=== PATIENT | male | born 2000 | race Two or more races ===

== ENCOUNTER 2020-01-28 19:03 | Emergency (ER) | payer MEDICAID, OTHER ==
--- NOTE | 2020-01-28 19:31 | EDM.PDOC ---
ED HPI GENERAL MEDICAL PROBLEM - General Chief Complaint: General Stated Complaint: COUGH, CHEST TIGHTNESS Time Seen by Provider: 01/28/20 19:25 Source of Information: Reports: Patient, Family (). Denies: Old Records ( No [facility] records available) History Limitations: Reports: No Limitations - History of Present Illness INITIAL COMMENTS - FREE TEXT/NARRATIVE: The patient was brought to the emergency room via private automobile by his for evaluation of a one-week history of progressive brownish productive cough associated with intermittent pleurisy. He also has problems with increasing sinus congestion with secondary headaches including migraine headaches. The patient has not taken any medications for his symptoms to this point. He denies any known exposure to infection or recent travel. The patient has not received his influenza booster yet this season or last year. His other immunizations are apparently up-to-date. The patient also denies any recent fever, wheezing, dyspnea, etc.. No recent history of abdominal pain, heartburn , nausea, diarrhea, melena, gross hematochezia, or any food intolerance, including fatty foods, etc.. The patient denies any other chest pain/pressure, heart flutter, dizziness, orthostasis, orthopnea, diaphoresis, paresthesias, recent decreased exercise tolerance, or any other anginal-type symptoms. Onset: Gradual Onset Date: 01/21/20 Duration: Day(s):, Getting Worse Location: Reports: Head (Frontal headache bilaterally), Chest (Pleurisy as above ). Denies: Face, Neck, Abdomen, Back, Upper Extremity, Left, Upper Extremity, Right, Radiates to Quality: Reports: Same as Previous Episode, Sharp Severity: Moderate Improves with: Reports: Rest Worsens with: Reports: Breathing Context: Reports: Other (As above). Denies: Sick Contact, Trauma Associated Symptoms: Reports: Chest Pain (Pleurisy), Cough, cough w sputum, Headaches. Denies: Confusion, Diaphoresis, Fever/Chills, Loss of Appetite, Malaise, Nausea/Vomiting, Rash, Shortness of Breath, Syncope, Weakness Treatments [employer]: Reports: Other (see below) (None) Headache Pain Score (Numeric/FACES): 6 (And occasional pleurisy) - Related Data Allergies Allergy/AdvReac Type Severity Reaction Status Date / Time acetaminophen Allergy Bleeding Verified 01/28/20 19:13 Home Meds: Home Meds . [No Known Home Meds] 01/28/20 [History] Past Medical History HEENT History: Reports: None. Denies: Impaired Vision Cardiovascular History: Reports: None. Denies: Arrhythmia, Heart Murmur, Hypertension Respiratory History: Reports: Asthma, Bronchitis, Recurrent, Other (See Below) Other Respiratory History: Childhood asthma. Gastrointestinal History: Reports: None Neurological History: Reports: Headaches, Chronic, Migraines - Past Surgical History HEENT Surgical History: Reports: Oral Surgery, Other (See Below). Denies: Adenoidectomy, Myringotomy w Tube(s), Tonsillectomy Other HEENT Surgeries/Procedures: [place] teeth extraction 4 at 16 years of age GI Surgical History: Reports: None. Denies: Hernia, Abdominal, Hernia, Inguinal , Hernia Repair/Other Male Surgical History: Reports: None. Denies: Circumcision, Vasectomy Social & Family History - Tobacco Use Smoking Status *Q: Current Every Day Smoker Tobacco Use Within Last Twelve Months: Cigarettes Years of Tobacco use: 10 Packs/Tins Daily: 0.2 Packs/Tins Daily Comment: Started smoking at age 9. Used Tobacco, but Quit: No Smoking Cessation Information Provided To Patient: Yes Second Hand Smoke Exposure: No Second Hand Smoke Education Provided: No - Living Situation & Occupation Living situation: Reports: (2019, 1 child) Occupation: Employed (About to be employed by [employer]) ED ROS GENERAL - Review of Systems Review Of Systems: Comprehensive ROS is negative, except as noted in HPI. 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 No: Normal Oropharynx (Trace erythema in the posterior pharynx with no pinpoint white exudates or peritonsillar abscess), Dysphagia, Perioral Cyanosis Head: Atraumatic. No: Facial Swelling, Facial Tenderness, Sinus Tenderness Neck: Normal Inspection, Supple, Non-Tender, Full Range of Motion. No: Lymphadenopathy (L), Lymphadenopathy (R), Thyromegaly Respiratory/Chest: No Respiratory Distress, Lungs Clear, Normal Breath Sounds, No Accessory Muscle Use, Chest Non-Tender. No: Pleural Rub, Retractions Cardiovascular: Normal Peripheral Pulses, Regular Rate, Rhythm, No Edema, No Gallop, No JVD, No Murmur, No Rub. No: Gallop/S3, Gallop/S4 Peripheral Pulses: 2+: Radial (L), Radial (R), Dorsalis Pedis (L), Dorsalis Pedis (R) GI/Abdominal: Normal Bowel Sounds, Soft, Non-Tender, No Organomegaly, No Distention, No Abnormal Bruit, No Mass. No: Guarding (Male) Exam: Deferred Rectal (Males) Exam: Deferred Back Exam: Normal Inspection, Full Range of Motion. No: CVA Tenderness (L), CVA Tenderness (R), Muscle Spasm Extremities: Normal Inspection, Normal Range of Motion, Non-Tender, Normal Capillary Refill, No Pedal Edema Neurological: Alert, Oriented, CN II-XII Intact, Normal Cognition, Normal Gait, No Motor/Sensory Deficits Psychiatric: Normal Affect, Normal Mood Skin Exam: Warm, Dry, Intact, Normal Color, No Rash Lymphatic: No Adenopathy Course - Vital Signs Last Recorded V/S: Last Vital Signs Temp 37.1 C 01/28/20 19:04 Pulse 79 01/28/20 19:04 Resp 16 01/28/20 19:04 BP 131/81 01/28/20 19:04 Pulse Ox 96 01/28/20 19:04 Vital Signs - 24 hr 01/28/20 19:04 Temperature [ 37.1 C Temporal] Pulse, 79 Peripheral [ Pulse Oximetry] Respiratory 16 Rate Blood Pressure 131/81 [Upper Arm] O2 Sat by Pulse 96 Oximetry - Orders/Labs/Meds Orders: Active Orders 24 hr Category Date Time Status Influenza Vaccine Charge [RC] .DISCHARGE Care 01/28/20 20:08 Active Chest 2V [CR] Urgent Exams 01/28/20 19:33 Taken CULTURE STREP A CONFIRMATION [] Stat Lab 01/28/20 17:30 Results STREP SCRN A RAPID W CULT CONF [RM] Stat Lab 01/28/20 17:30 Results Isolation [COMM] Routine Oth 01/28/20 19:32 Active Obtain Past Medical Record [OM.PC] Routine Oth 01/28/20 19:32 Active Labs: Microbiology 01/28/20 15:30 Influenza Type A Antigen Screen - Final Nasal, Left NEGATIVE INFLUENZA A VIRUS AG REFERENCE RANGE: NEGATIVE Influenza Type B Antigen Screen - Final NEGATIVE INFLUENZA B VIRUS AG REFERENCE RANGE: NEGATIVE 01/28/20 17:30 Group A Streptococcus Rapid Screen - Final Throat NEGATIVE STREP A SCREEN REFERENCE RANGE: NEGATIVE Meds: Medications Discontinued Medications Generic Name Dose Route Start Last Admin Trade Name Freq PRN Reason Stop Dose Admin Influenza Virus Vaccine 60 mcg 01/28/20 20:30 01/28/20 20:23 Fluzone Quad Syringe IM 01/28/20 20:31 60 mcg .ONCE ONE Administration - Radiology Interpretation Free Text/Narrative:: Chest x-ray, PA and lateral, shows mild pulmonary obstructive disease with no pulmonary infiltrates, cardiomegaly, CHF, pneumothorax, etc. Departure - Departure Time of Disposition: 20:37 Disposition: Home, Self-Care 01 Condition: Good Clinical Impression: Bronchitis, Pleurisy, Frequent headaches, Tobacco abuse counseling, Asthma - Discharge Information *PRESCRIPTION DRUG MONITORING PROGRAM REVIEWED*: Not Applicable *COPY OF PRESCRIPTION DRUG MONITORING REPORT IN PATIENT ALEX: Not Applicable Instructions: Steps to Quit Smoking, [id number], Health Risks of Smoking, Pleurisy, [id number] Referrals: PCP,Unknown [Ordering Only Provider] - Forms: ED Department Discharge Additional Instructions: 1. Follow up with your regular provider in 10-14 days as needed, if symptoms persist. Bring these discharge instructions with you to that visit.. 2. OTC ibuprofen 2-3 tabs by mouth every 6 hours with food as directed./ needed. 3. Stop all tobacco use EMMANUEL as directed/per provided information and consider contacting Quit LIne, etc.. 4. Immediately after this visit verify that your cellular telephone's voicemail has been activated and is empty. Also verify that your home telephone 's answering machine is operating properly and has space to receive messages. Note that it is sometimes necessary for us to be able to contact you at a later date to discuss your medical care. 5. Please remember that we are ALWAYS here for you and want to answer any questions you may have. Feel free to call the hospital any time and we call you back EMMANUEL. 6. Listerine gargles four times per day, after meals and at bedtime, with additional Chloroseptic lozenges or spray as needed for 10 days and/or until symptoms resolve. Sepsis Event Note - Evaluation Sepsis Screening Result: No Definite Risk - Focused Exam Vital Signs: Vital Signs Temp Pulse Resp BP Pulse Ox 01/28/20 19:04 37.1 C 79 16 131/81 96 Date Exam was Performed: 01/28/20 Time Exam was Performed: 20:49 - Problem List & Annotations (1) Bronchitis SNOMED Code(s): 46242905 Code(s): J40 - BRONCHITIS, NOT SPECIFIED ACUTE OR CHRONIC Status: Acute Priority: High Current Visit: No Onset Date: 01/21/20 Annotation/ Comment:: Likely viral bronchitis with secondary pleurisy and additional mild viral pharyngitis with symptomatic relief as per discharge instructions. Influenza booster given during today's visit. No indication for antibiotic therapy at this time. (2) Frequent headaches SNOMED Code(s): 171233113 Code(s): R51 - HEADACHE Status: Chronic Priority: Medium Current Visit : No Annotation/Comment:: Frequent mixed migraine and tension headaches with mostly tension component at this time. Note of URI symptoms with possible beginning viral sinus infection. Observe for now. (3) Pleurisy SNOMED Code(s): 099323755 Code(s): R09.1 - PLEURISY Status: Acute Priority: High Current Visit: No Onset Date: 01/21/20 Annotation/Comment:: As above. No pleuritic pain at time of ER evaluation. (4) Tobacco abuse counseling SNOMED Code(s): 871939102, 497864482, 376013965 Code(s): Z71.6 - TOBACCO ABUSE COUNSELING Status: Chronic Priority: Medium Current Visit: No Annotation/Comment:: Tobacco cessation strongly encouraged with information provided at time of discharge. - Problem List Review Problem List Initiated/Reviewed/Updated: Yes - My Orders Last 24 Hours: My Active Orders 01/28/20 17:30 CULTURE STREP A CONFIRMATION [RM] Stat STREP SCRN A RAPID W CULT CONF [RM] Stat 01/28/20 19:32 Isolation [COMM] Routine Obtain Past Medical Record [OM.PC] Routine 01/28/20 19:33 Chest 2V [CR] Urgent 01/28/20 20:08 Influenza Vaccine Charge [RC] .DISCHARGE - Assessment/Plan Last 24 Hours: My Active Orders 01/28/20 17:30 CULTURE STREP A CONFIRMATION [RM] Stat STREP SCRN A RAPID W CULT CONF [RM] Stat 01/28/20 19:32 Isolation [COMM] Routine Obtain Past Medical Record [OM.PC] Routine 01/28/20 19:33 Chest 2V [CR] Urgent 01/28/20 20:08 Influenza Vaccine Charge [RC] .DISCHARGE Assessment:: As above Plan: As above. Extensive precautions were given to the patient and his , who are in agreement with the treatment plan. See Patient Instructions for further treatment and plan.
[2020-01-28] MEDS ORDERED: FLU Vacc QS2019-20(6MOS+)/PF 60 MCG/0.5 ML SYRINGE IM ONE (20:30)
== END 2020-01-28 20:37 | disposition home or self-care (01) ==
LOC: LL.ED 19:03
DX: J45.909 Unspecified asthma, uncomplicated (principal); R09.1 Pleurisy; F17.210 Nicotine dependence, cigarettes, uncomplicated; Z23 Encounter for immunization; Z71.6 Tobacco abuse counseling; Z88.8 Allergy status to other drugs, medicaments and biological substances
CPT/HCPCS: 71046; 87081; 87430; 87804; 90686; 99283-25; G0008

== ENCOUNTER 2020-05-14 17:07 | Emergency (ER) | payer MEDICAID ==
[2020-05-14 17:22] VITALS: BP 108/62; PULSE 60
[2020-05-14 17:47] LABS: CHLORIDE,CL 104 mmol/L (98-107); SODIUM,NA 141 mmol/L (136-145)
--- NOTE | 2020-05-14 17:56 | EDM.PDOC ---
ED HPI GENERAL MEDICAL PROBLEM - General Chief Complaint: General Stated Complaint: fevers, muscle aches, JACKMAN, vomiting Time Seen by Provider: 05/14/20 17:40 Source of Information: Reports: Patient History Limitations: Reports: No Limitations - History of Present Illness INITIAL COMMENTS - FREE TEXT/NARRATIVE: Patient sent here from [facility] due to not feeling well for last 24 hours. Over that time he has developed mild cough, stuffy nose, mild body aches, nausea and emesis. Eating and drinking well. No bowel changes. No measured fevers but felt warm. Has headache. Sent home from work last night. Now they wish to have him checked out given Covid 19 threat. No other complaints. Bilateral Temporal Pain Score (Numeric/FACES): 8 - Related Data Allergies Allergy/AdvReac Type Severity Reaction Status Date / Time acetaminophen Allergy Bleeding Verified 05/14/20 17:08 Home Meds: Home Meds . [No Known Home Meds] 01/28/20 [History] Past Medical History HEENT History: Reports: None Cardiovascular History: Reports: None Respiratory History: Reports: Asthma, Bronchitis, Recurrent, Other (See Below) Other Respiratory History: Childhood asthma. Gastrointestinal History: Reports: None Neurological History: Reports: Headaches, Chronic, Migraines - Past Surgical History HEENT Surgical History: Reports: Oral Surgery, Other (See Below) Other HEENT Surgeries/Procedures: [place] teeth extraction 4 at 16 years of age GI Surgical History: Reports: None Male Surgical History: Reports: None Social & Family History - Tobacco Use Smoking Status *Q: Current Every Day Smoker Years of Tobacco use: 8 Packs/Tins Daily: 0.5 - Caffeine Use Caffeine Use: Reports: None - Recreational Drug Use Recreational Drug Use: No - Living Situation & Occupation Living situation: Reports: (2019, 1 child) Occupation: Employed (About to be employed by [employer]) ED ROS GENERAL - Review of Systems Review Of Systems: See Below Constitutional: Reports: Fever, Malaise. Denies: Night Sweats, Diaphoresis HEENT: Reports: Other (stuffy nose) Respiratory: Reports: Cough (mild). Denies: Shortness of Breath, Wheezing, Pleuritic Chest Pain, Sputum, Hemoptysis Cardiovascular: Reports: No Symptoms. Denies: Chest Pain, Palpitations, Syncope GI/Abdominal: Reports: Nausea, Vomiting. Denies: Abdominal Pain, Constipation, Diarrhea, Hematemesis, Hematochezia : Reports: No Symptoms Musculoskeletal: Reports: Muscle Pain Skin: Reports: No Symptoms Neurological: Reports: Headache. Denies: Dizziness, Syncope Psychiatric: Reports: No Symptoms Hematologic/Lymphatic: Reports: No Symptoms ED EXAM, GENERAL - Physical Exam Exam: See Below Exam Limited By: Intoxication General Appearance: Alert, WD/WN, No Apparent Distress, Other (busy messaging on his phone) Eye Exam: Bilateral Eye: EOMI, PERRL Ears: Normal External Exam, Hearing Grossly Normal Nose: Normal Inspection Throat/Mouth: Normal Inspection, Normal Lips, Normal Voice, No Airway Compromise Head: Atraumatic, Normocephalic Neck: Normal Inspection, Supple, Non-Tender, Full Range of Motion. No: Lymphadenopathy (L), Lymphadenopathy (R) Respiratory/Chest: No Respiratory Distress, Lungs Clear, Normal Breath Sounds, No Accessory Muscle Use, Chest Non-Tender Cardiovascular: Normal Peripheral Pulses, Regular Rate, Rhythm, No Edema, No Murmur GI/Abdominal: Soft, Non-Tender, No Distention Back Exam: No: CVA Tenderness (L), CVA Tenderness (R), Muscle Spasm Extremities: Normal Inspection, Normal Capillary Refill Neurological: Alert, Oriented, CN II-XII Intact, Normal Cognition, Normal Gait, No Motor/Sensory Deficits Psychiatric: Normal Affect, Normal Mood Skin Exam: Warm, Dry, Intact, Normal Color Course - Vital Signs Last Recorded V/S: Last Vital Signs Temp 36.6 C 05/14/20 17:15 Pulse 60 05/14/20 17:15 Resp 15 05/14/20 17:15 BP 108/62 05/14/20 17:15 Pulse Ox 98 05/14/20 17:15 - Orders/Labs/Meds Orders: Active Orders 24 hr Category Date Time Status CORONAVIRUS COVID-19 PCR PHL Routine Lab 05/14/20 17:30 Received UA W/MICROSCOPIC [URIN] Stat Lab 05/14/20 17:18 Ordered Labs: Laboratory Tests 05/14/20 05/14/20 05/14/20 Range/Units 17:30 17:30 17:30 WBC 8.4 (4.0-10.2) K/uL RBC 4.70 (4.33-5.41) M/uL Hgb 14.8 (13.1-16.8) g/dL Hct 42.7 (39.0-49.0) % MCV 90.9 (84.0-98.0) fL MCH 31.5 (28.2-33.3) pg MCHC 34.7 (31.7-36.0) g/dL RDW 12.1 (11.2-14.1) % Plt Count 324 (150-350) K/uL Neut % (Auto) 46.9 (45.0-80.0) % Lymph % (Auto) 38.9 (10.0-50.0) % [place] % (Auto) 10.9 (2.0-14.0) % Eos % (Auto) 3.1 (0.0-5.0) % Baso % (Auto) 0.2 (0.0-2.0) % Neut # (Auto) 3.92 (1.40-7.00) K/uL Lymph # (Auto) 3.25 (0.50-3.50) K/uL [place] # (Auto) 0.91 (0.00-1.00) K/uL Eos # (Auto) 0.26 (0.00-0.50) K/uL Baso # (Auto) 0.02 (0.00-0.20) K/uL Sodium 141 (136-145) mmol/L Potassium 3.9 (3.5-5.1) mmol/L Chloride 104 (98-107) mmol/L Carbon Dioxide 29.4 (21.0-32.0) mmol/L BUN 13 (7-18) mg/dL Creatinine 0.83 (0.51-1.17) mg/dL Est Cr Clr Drug Dosing 135.49 mL/min Estimated GFR (MDRD) > 60 mL/min Glucose 91 (74-106) mg/dL Lactic Acid 0.9 (0.4-2.0) mmol/L Calcium 9.1 (8.5-10.1) mg/dL Total Bilirubin 1.5 H (0.2-1.0) mg/dL AST 17 (15-37) U/L ALT 23 (12-78) U/L Alkaline Phosphatase 76 (46-116) IU/L Total Protein 7.4 (6.4-8.2) g/dL Albumin 4.3 (3.4-5.0) g/dL - Re-Assessments/Exams Free Text/Narrative Re-Assessment/Exam: 05/14/20 17:57 Vital signs stable. Unremarkable exam. Well hydrated. Comfortable appearance. Baseline labs (CBC/Chem/lactic) overall unremarkable. 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 Covid 19 testing performed. Discharge home. No return to [facility] until Covid testing results are available. Follow up otherwise as needed. Precautions reviewed prior to discharge. Patient declined Toradol for pain/Zofran for nausea Departure - Departure Time of Disposition: 17:59 Disposition: Home, Self-Care 01 Condition: Good Clinical Impression: Viral illness - Discharge Information *PRESCRIPTION DRUG MONITORING PROGRAM REVIEWED*: Not Applicable *COPY OF PRESCRIPTION DRUG MONITORING REPORT IN PATIENT ALEX: Not Applicable Instructions: Viral Respiratory Infection, [id number] Forms: ED Department Discharge Additional Instructions: No work until your Covid 19 results become available. The test will be sent out tomorrow, and may take several days to complete. Further restrictions to be discussed if test is positive. For now rest/stay hydrated. Follow up as needed if you have problems/worsening. Sepsis Event Note (ED) - Evaluation Sepsis Screening Result: No Definite Risk - Focused Exam Vital Signs: Vital Signs Temp Pulse Resp BP Pulse Ox 05/14/20 17:15 36.6 C 60 15 108/62 98 - My Orders Last 24 Hours: My Active Orders 05/14/20 17:18 UA W/MICROSCOPIC [URIN] Stat 05/14/20 17:30 CORONAVIRUS COVID-19 PCR PHL Routine - Assessment/Plan Last 24 Hours: My Active Orders 05/14/20 17:18 UA W/MICROSCOPIC [URIN] Stat 05/14/20 17:30 CORONAVIRUS COVID-19 PCR PHL Routine
== END 2020-05-14 18:16 | disposition home or self-care (01) ==
LOC: LL.ED 17:07
DX: B34.9 Viral infection, unspecified (principal); Z20.828 Contact with and (suspected) exposure to other viral communicable diseases; F17.210 Nicotine dependence, cigarettes, uncomplicated; J45.909 Unspecified asthma, uncomplicated
CPT/HCPCS: 36415; 80053; 83605; 85025; 99284; U0002

== ENCOUNTER 2020-08-05 23:59 | Emergency (ER) | payer BC ==
[2020-08-06 00:03] VITALS: BP 129/79; PULSE 63
--- NOTE | 2020-08-06 00:15 | EDM.PDOC ---
ED HPI GENERAL MEDICAL PROBLEM - General Chief Complaint: General Stated Complaint: Nausea, chills Time Seen by Provider: 08/06/20 00:15 Source of Information: Reports: Patient, Old Records ([facility] EMR. No paper hospital chart available.) History Limitations: Reports: No Limitations - History of Present Illness INITIAL COMMENTS - FREE TEXT/NARRATIVE: The patient was brought to the emergency room via transport vehicle from [facility] for evaluation of multiple complaints. About 2 days ago he did have a nonspecific headache with previous history of chronic headaches. About 1 hour prior to arrival the patient began experiencing some nonspecific 10/10 diffuse abdominal cramping associated with nausea with 3 episodes of emesis prior to arrival. He also did have some mild loose stools earlier today. The patient denies any history of known exposure to infection, food poisoning, etc. No recent history of heartburn, significant diarrhea, melena, gross hematochezia, or any food intolerance, including fatty foods, etc.. He also complains of some possible mild dysuria and urinary frequency, however no diaphoresis or colic type symptoms. Possible chills shortly prior to arrival, however temperature not measured with no fever at time of arrival to our facility. No medications have been given to this point. The patient also denies any recent fever, cough, wheezing, dyspnea, etc.. Onset: Gradual, Other (As above) Onset Date: 08/05/20 Duration: Constant Location: Reports: Abdomen. Denies: Head, Face, Neck, Chest, Back, Pelvis, Upper Extremity, Left, Upper Extremity, Right, Radiates to Quality: Reports: Same as Previous Episode, Stabbing Severity: Severe Improves with: Reports: None Worsens with: Reports: None Context: Reports: Other (As above). Denies: Sick Contact, Trauma Associated Symptoms: Reports: Fever/Chills, Headaches, Nausea/Vomiting. Denies: Confusion, Chest Pain, Cough, Diaphoresis, Loss of Appetite, Malaise, Rash, Shortness of Breath, Syncope, Weakness Treatments PRECISION MILLWRIGHT: Reports: Other (see below) (None) Abdomen Pain Score (Numeric/FACES): 10 Neck Pain Score (Numeric/FACES): 6 - Related Data Allergies Allergy/AdvReac Type Severity Reaction Status Date / Time acetaminophen Allergy Bleeding Verified 08/06/20 00:08 Home Meds: Home Meds . [No Known Home Meds] 03/11/20 [History] Past Medical History HEENT History: Reports: None. Denies: Allergic Rhinitis, Hard of Hearing, Impaired Vision, Otitis Media, Retinal Detachment, Sinusitis Cardiovascular History: Reports: None. Denies: Afib, Aneurysm, Arrhythmia, Blood Clots/VTE/DVT, CAD, Heart Murmur, High Cholesterol, Hypertension, Syncope Respiratory History: Reports: Asthma, Bronchitis, Recurrent, Intubation, Previous, Other (See Below). Denies: COPD, Intubation, Difficult, PE, Pneumonia, Recurrent, Pneumothorax, Sleep Apnea, TB Other Respiratory History: Childhood asthma. Gastrointestinal History: Reports: None, GERD. Denies: Celiac Disease, Cholelithiasis, Chronic Constipation, Chronic Diarrhea, Colon Polyp, Fecal Incontinence, Gastritis, GI Bleed, Inflammatory Bowel Disease, Irritable Bowel Syndrome, Jaundice, PUD Genitourinary History: Reports: Renal Calculus, Other (See Below). Denies: Acute Renal Failure, BPH, Chronic Renal Insuffiency, Retention, Urinary, STD, Urinary Incontinence, UTI, Recurrent Other Genitourinary History: Possible history of left-sided urolithiasis x2 at ages 15 and 16 with spontaneous passage, however not evaluated by a physician. Musculoskeletal History: Reports: Fracture, Other (See Below). Denies: Arthritis, Gout, Osteoarthritis, RA, SLE Other Musculoskeletal History: Left ankle fracture at age 15 requiring surgery as below. Right thumb metacarpal fracture at age 17. Joint hypermotility? Mild scoliosis. Neurological History: Reports: Concussion, Headaches, Chronic, Head Trauma, Migraines, Other (See Below). Denies: Cerebral Aneurysms, CVA, MS, Neuropathy, Peripheral, Parkinson's, Seizure, TIA, Vertigo Other Neuro History: Head concussions x3 secondary to sports injuries as a teenager. Psychiatric History: Reports: ADD, ADHD, Addiction, Anxiety, Depression, Panic Attack, Other (See Below). Denies: Abuse, Victim of, Psych Hospitalization(s), PTSD, Suicide Attempt, Suicidal Ideation Other Psychiatric History: Note binge drinking and marijuana use. Endocrine/Metabolic History: Reports: None. Denies: Diabetes, Type I, Diabetes, Type II, Diabetes Mellitus, Type 3c, Hypothyroidism, IDDM Hematologic History: Reports: None. Denies: Anemia, Blood Transfusion(s), Iron Deficiency Immunologic History: Reports: None. Denies: AIDS, HIV, SLE Oncologic (Cancer) History: Reports: None. Denies: Basal Cell Carcinoma, Hodgkin's Lymphoma, Leukemia, Lymphoma, Malignant Melanoma, Non-Hodgkin's Lymphoma, Squamous Cell Carcinoma Dermatologic History: Reports: None. Denies: Eczema, Psoriasis - Infectious Disease History Infectious Disease History: Reports: Chicken Pox. Denies: C-Difficile, Measles, Meningitis, Mononucleosis, MRSA, Mumps, Pertussis (Whooping Cough), Rubella, Scarlet Fever, Shingles, TB, VRE - Past Surgical History Head Surgeries/Procedures: Reports: None HEENT Surgical History: Reports: Oral Surgery, Other (See Below). Denies: Adenoidectomy, Cataract Surgery, Eye Surgery, Laser Surgery, LASIK, Myringotomy w Tube(s), Naso-Sinus Surgery, Tonsillectomy Other HEENT Surgeries/Procedures: [place] teeth extraction 4 at 16 years of age Cardiovascular Surgical History: Reports: None. Denies: Varicose Respiratory Surgical History: Reports: None. Denies: Thoracentesis GI Surgical History: Reports: None. Denies: Appendectomy, Cholecystectomy, Colonoscopy, EGD, Hernia, Abdominal, Hernia, Inguinal, Hernia Repair/Other Male Surgical History: Reports: None. Denies: Circumcision, Vasectomy Endocrine Surgical History: Reports: None. Denies: Thyroid Biopsy Neurological Surgical History: Reports: None. Denies: C-Spine, Discectomy, Laminectomy, Lumbar Spine, Sacral Spine, Spinal Fusion, Thoracic Spine, Vertebroplasty Musculoskeletal Surgical History: Reports: ORIF, Other (See Below). Denies: Arthroscopic Procedure, Carpal Tunnel, Ganglion Cyst, Joint Replacement, Shoulder Surgery Other Musculoskeletal Surgeries/Procedures:: ORIF of left ankle fracture at age 15 with subsequent hardware removal. Oncologic Surgical History: Reports: None Dermatological Surgical History: Reports: None Social & Family History - Family History Family Medical History: Noncontributory - Tobacco Use Smoking Status *Q: Current Every Day Smoker Tobacco Use Within Last Twelve Months: Cigarettes Years of Tobacco use: 10 Packs/Tins Daily: 0.5 Packs/Tins Daily Comment: Started smoking at age 9. Used Tobacco, but Quit: No Smoking Cessation Information Provided To Patient: Yes Second Hand Smoke Exposure: Yes Source of Second Hand Smoke Exposure: smokes Second Hand Smoke Education Provided: Yes - Caffeine Use Caffeine Use: Reports: Coffee (4 cups/day), Soda (2 sodas per day), Tea (2 cups/day). Denies: Energy Drinks - Alcohol Use Alcohol Use History: Yes Days Per Week of Alcohol Use: 1 Number of Drinks Per Day: 8 Number of Drinks Per Day Comment: Usually mixed drinks and drinks at least a pint of hard liquor at that time. No previous DWIs, problems with alcohol abuse, etc. Total Drinks Per Week: 8 Alcohol Use in Last Twelve Months: Yes Alcohol Use Frequency: Binges - Recreational Drug Use Recreational Drug Use: Yes Drug Use in Last 12 Months: Yes Recreational Drug Type: Reports: Marijuana/Hashish (Started smoking marijuana at age 12 with current use of 1 joint per week, which he uses for his ADHD.). Denies: Amphetamines (Speed), Cocaine, Heroin, Inhalants (Glues, Solvents, Aerosols), LSD (Acid), Methamphetamine, Morphine, Oxycodone - Living Situation & Occupation Living situation: Reports: (2019, 1 child), with Family Occupation: Employed ([employer]) ED ROS GENERAL - Review of Systems Review Of Systems: Comprehensive ROS is negative, except as noted in HPI. ED EXAM, GENERAL - Physical Exam Exam: See Below Exam Limited By: No Limitations General Appearance: Alert, WD/WN, No Apparent Distress, Anxious (Mild to moderate) Eye Exam: Bilateral Eye: EOMI, Normal Inspection (No nystagmus), PERRL Ears: Normal External Exam, Normal Canal, Hearing Grossly Normal, Normal TMs, Other (Large inferior implanted auricular rings bilaterally) Nose: Normal Inspection, Normal Mucosa, No Blood Throat/Mouth: Normal Inspection, Normal Lips, Normal Teeth, Normal Gums, Normal Oropharynx, Normal Voice, No Airway Compromise, Other (Tongue stud). No: Dysphagia, Inflammation, Perioral Cyanosis Head: Atraumatic, Normocephalic. No: Facial Swelling, Facial Tenderness, Sinus Tenderness Neck: Normal Inspection, Supple, Non-Tender, Full Range of Motion. No: Lymphadenopathy (L), Lymphadenopathy (R), Thyromegaly Respiratory/Chest: No Respiratory Distress, Lungs Clear, Normal Breath Sounds, No Accessory Muscle Use, Chest Non-Tender. No: Pleural Rub, Retractions Cardiovascular: Normal Peripheral Pulses, Regular Rate, Rhythm, No Edema, No Gallop, No JVD, No Murmur, No Rub. No: Gallop/S3, Gallop/S4, Friction Rub Peripheral Pulses: 2+: Radial (L), Radial (R) GI/Abdominal: Normal Bowel Sounds, Soft, Non-Tender, No Organomegaly, No Distention, No Abnormal Bruit, No Mass. No: Guarding (Male) Exam: Deferred Rectal (Males) Exam: Deferred Back Exam: Full Range of Motion, Other (Mild scoliosis). No: CVA Tenderness (L), CVA Tenderness (R), Muscle Spasm, Paraspinal Tenderness, Vertebral Tenderness Extremities: Normal Inspection, Normal Range of Motion, Non-Tender, No Pedal Edema, Normal Capillary Refill. No: Licha's Sign Neurological: Alert, Oriented, CN II-XII Intact, Normal Cognition, Normal Gait, Normal Reflexes (Negative meningeal signs), No Motor/Sensory Deficits Psychiatric: Anxious (Moderate), Depressed Mood (Borderline) Skin Exam: Warm, Dry, Intact, Normal Color, No Rash, Stud(s) (Multiple as above). No: Diaphoretic, Ecchymosis, Jaundice, Pallor, Petechiae, Wound /Incision Lymphatic: No Adenopathy Course - Vital Signs Last Recorded V/S: Last Vital Signs Temp 37.0 C 08/06/20 00:02 Pulse 63 08/06/20 00:02 Resp 14 08/06/20 00:02 BP 129/79 08/06/20 00:02 Pulse Ox 100 08/06/20 00:02 Vital Signs - 24 hr 08/06/20 00:02 Temperature [ 37.0 C Oral] Pulse, 63 Peripheral [ Right Pulse Oximetry] Respiratory 14 Rate Blood Pressure 129/79 [Left Upper Arm ] O2 Sat by Pulse 100 Oximetry - Orders/Labs/Meds Orders: Active Orders 24 hr Category Date Time Status Peripheral IV Care [RC] . DIRECTED Care 08/06/20 00:24 Active Nothing Per Oral Diet [DIET] Diet 08/06/20 Breakfast Active Abdomen Series w Chest 1V [CR] Stat Exams 08/06/20 00:23 Taken CORONAVIRUS COVID-19 PCR PHL Urgent Lab 08/06/20 00:41 Ordered CULTURE STREP A CONFIRMATION [RM] Stat Lab 08/06/20 00:50 Results CULTURE URINE [RM] Stat Lab 08/06/20 00:23 Ordered STREP SCRN A RAPID W CULT CONF [RM] Stat Lab 08/06/20 00:50 Results Sodium Chloride 0.9% [Saline Flush] Med 08/06/20 00:22 Active 10 ml FLUSH ASDIRECTED PRN Isolation [COMM] Routine Oth 08/06/20 00:42 Active Obtain Past Medical Record [OM.PC] Urgent Oth 08/06/20 00:23 Active Peripheral IV Insertion Adult [OM.PC] Stat Oth 08/06/20 00:23 Ordered Resuscitation Status Stat Resus Stat 08/06/20 00:22 Ordered Medication Orders Sodium Chloride (Saline Flush) 10 ml FLUSH ASDIRECTED PRN PRN Reason: Keep Vein Open Last Admin: 08/06/20 00:39 Dose: 10 ml Documented by: OUMOU Labs: Laboratory Tests 08/06/20 08/06/20 08/06/20 Range/Units 00:40 00:40 00:40 WBC 9.2 (4.0-10.2) K/uL RBC 4.47 (4.33-5.41) M/uL Hgb 13.9 (13.1-16.8) g/dL Hct 40.3 (39.0-49.0) % MCV 90.2 (84.0-98.0) fL MCH 31.1 (28.2-33.3) pg MCHC 34.5 (31.7-36.0) g/dL RDW 12.9 (11.2-14.1) % Plt Count 318 (150-350) K/uL Neut % (Auto) 70.6 (45.0-80.0) % Lymph % (Auto) 16.3 (10.0-50.0) % [place] % (Auto) 10.6 (2.0-14.0) % Eos % (Auto) 2.3 (0.0-5.0) % Baso % (Auto) 0.2 (0.0-2.0) % Neut # (Auto) 6.50 (1.40-7.00) K/uL Lymph # (Auto) 1.50 (0.50-3.50) K/uL [place] # (Auto) 0.98 (0.00-1.00) K/uL Eos # (Auto) 0.21 (0.00-0.50) K/uL Baso # (Auto) 0.02 (0.00-0.20) K/uL PT 9.6 (9.5-12.0) SEC INR 1.0 APTT 26.7 (24.5-32.8) SEC Sodium (136-145) mmol/L Potassium (3.5-5.1) mmol/L Chloride (98-107) mmol/L Carbon Dioxide (21.0-32.0) mmol/L BUN (7-18) mg/dL Creatinine (0.51-1.17) mg/dL Est Cr Clr Drug Dosing mL/min Estimated GFR (MDRD) mL/min Glucose (74-106) mg/dL Lactic Acid (0.4-2.0) mmol/L Uric Acid (2.6-7.2) mg/dL Calcium (8.5-10.1) mg/dL Magnesium (1.8-2.4) mg/dL Total Bilirubin (0.2-1.0) mg/dL AST (15-37) U/L ALT (12-78) U/L Alkaline Phosphatase (46-116) IU/L Total Protein (6.4-8.2) g/dL Albumin (3.4-5.0) g/dL Amylase 48 (25-115) U/L Lipase (73-393) U/L Specimen Type Urine Color Urine Appearance Urine pH (5.0-9.0) Ur Specific [place] (1.005-1.030) Urine Protein (NEGATIVE) mg/dL Urine Glucose (UA) (NEGATIVE) mg/dL Urine Ketones (NEGATIVE) mg/dL Urine Occult Blood (NEGATIVE) Urine Nitrite (NEGATIVE) Urine Bilirubin (NEGATIVE) Urine Urobilinogen (0.2-1.0) E.U./dL Ur Leukocyte Esterase (NEGATIVE) Urine RBC /HPF Urine WBC /HPF Ur Epithelial Cells /LPF Urine Bacteria (NONE TO FEW) /HPF Urine Opiates Screen (NEGATIVE) Ur Buprenorphine Scrn (NEGATIVE) Ur Oxycodone Screen (NEGATIVE) Ur EDDP (Meth Metab) (NEGATIVE) Ur Barbiturates Screen (NEGATIVE) Ur Tricyclics Screen (NEGATIVE) Ur Amphetamine Screen (NEGATIVE) U Methamphetamines Scrn (NEGATIVE) Urine MDMA Screen (NEGATIVE) U Benzodiazepines Scrn (NEGATIVE) U Cocaine Metab Screen (NEGATIVE) U Marijuana (THC) Screen (NEGATIVE) 08/06/20 08/06/20 08/06/20 Range/Units 00:40 00:40 01:35 WBC (4.0-10.2) K/uL RBC (4.33-5.41) M/uL Hgb (13.1-16.8) g/dL Hct (39.0-49.0) % MCV (84.0-98.0) fL MCH (28.2-33.3) pg MCHC (31.7-36.0) g/dL RDW (11.2-14.1) % Plt Count (150-350) K/uL Neut % (Auto) (45.0-80.0) % Lymph % (Auto) (10.0-50.0) % [place] % (Auto) (2.0-14.0) % Eos % (Auto) (0.0-5.0) % Baso % (Auto) (0.0-2.0) % Neut # (Auto) (1.40-7.00) K/uL Lymph # (Auto) (0.50-3.50) K/uL [place] # (Auto) (0.00-1.00) K/uL Eos # (Auto) (0.00-0.50) K/uL Baso # (Auto) (0.00-0.20) K/uL PT (9.5-12.0) SEC INR APTT (24.5-32.8) SEC Sodium 136 (136-145) mmol/L Potassium 3.5 (3.5-5.1) mmol/L Chloride 100 (98-107) mmol/L Carbon Dioxide 26.2 (21.0-32.0) mmol/L BUN 18 (7-18) mg/dL Creatinine 0.68 (0.51-1.17) mg/dL Est Cr Clr Drug Dosing 159.86 mL/min Estimated GFR (MDRD) > 60 mL/min Glucose 116 H (74-106) mg/dL Lactic Acid 1.9 (0.4-2.0) mmol/L Uric Acid 2.4 L (2.6-7.2) mg/dL Calcium 8.8 (8.5-10.1) mg/dL Magnesium 1.8 (1.8-2.4) mg/dL Total Bilirubin 0.4 (0.2-1.0) mg/dL AST 19 (15-37) U/L ALT 37 (12-78) U/L Alkaline Phosphatase 84 (46-116) IU/L Total Protein 7.3 (6.4-8.2) g/dL Albumin 4.1 (3.4-5.0) g/dL Amylase (25-115) U/L Lipase 155 (73-393) U/L Specimen Type Urinvoid Urine Color Yellow Urine Appearance Clear Urine pH 7.5 (5.0-9.0) Ur Specific [place] 1.020 (1.005-1.030) Urine Protein Negative (NEGATIVE) mg/dL Urine Glucose (UA) Negative (NEGATIVE) mg/dL Urine Ketones Negative (NEGATIVE) mg/dL Urine Occult Blood Negative (NEGATIVE) Urine Nitrite Negative (NEGATIVE) Urine Bilirubin Negative (NEGATIVE) Urine Urobilinogen 0.2 (0.2-1.0) E.U./dL Ur Leukocyte Esterase Negative (NEGATIVE) Urine RBC 0-5 /HPF Urine WBC 0-5 /HPF Ur Epithelial Cells Few /LPF Urine Bacteria Rare (NONE TO FEW) /HPF Urine Opiates Screen (NEGATIVE) Ur Buprenorphine Scrn (NEGATIVE) Ur Oxycodone Screen (NEGATIVE) Ur EDDP (Meth Metab) (NEGATIVE) Ur Barbiturates Screen (NEGATIVE) Ur Tricyclics Screen (NEGATIVE) Ur Amphetamine Screen (NEGATIVE) U Methamphetamines Scrn (NEGATIVE) Urine MDMA Screen (NEGATIVE) U Benzodiazepines Scrn (NEGATIVE) U Cocaine Metab Screen (NEGATIVE) U Marijuana (THC) Screen (NEGATIVE) 08/06/20 Range/Units 01:35 WBC (4.0-10.2) K/uL RBC (4.33-5.41) M/uL Hgb (13.1-16.8) g/dL Hct (39.0-49.0) % MCV (84.0-98.0) fL MCH (28.2-33.3) pg MCHC (31.7-36.0) g/dL RDW (11.2-14.1) % Plt Count (150-350) K/uL Neut % (Auto) (45.0-80.0) % Lymph % (Auto) (10.0-50.0) % [place] % (Auto) (2.0-14.0) % Eos % (Auto) (0.0-5.0) % Baso % (Auto) (0.0-2.0) % Neut # (Auto) (1.40-7.00) K/uL Lymph # (Auto) (0.50-3.50) K/uL [place] # (Auto) (0.00-1.00) K/uL Eos # (Auto) (0.00-0.50) K/uL Baso # (Auto) (0.00-0.20) K/uL PT (9.5-12.0) SEC INR APTT (24.5-32.8) SEC Sodium (136-145) mmol/L Potassium (3.5-5.1) mmol/L Chloride (98-107) mmol/L Carbon Dioxide (21.0-32.0) mmol/L BUN (7-18) mg/dL Creatinine (0.51-1.17) mg/dL Est Cr Clr Drug Dosing mL/min Estimated GFR (MDRD) mL/min Glucose (74-106) mg/dL Lactic Acid (0.4-2.0) mmol/L Uric Acid (2.6-7.2) mg/dL Calcium (8.5-10.1) mg/dL Magnesium (1.8-2.4) mg/dL Total Bilirubin (0.2-1.0) mg/dL AST (15-37) U/L ALT (12-78) U/L Alkaline Phosphatase (46-116) IU/L Total Protein (6.4-8.2) g/dL Albumin (3.4-5.0) g/dL Amylase (25-115) U/L Lipase (73-393) U/L Specimen Type Urine Color Urine Appearance Urine pH (5.0-9.0) Ur Specific [place] (1.005-1.030) Urine Protein (NEGATIVE) mg/dL Urine Glucose (UA) (NEGATIVE) mg/dL Urine Ketones (NEGATIVE) mg/dL Urine Occult Blood (NEGATIVE) Urine Nitrite (NEGATIVE) Urine Bilirubin (NEGATIVE) Urine Urobilinogen (0.2-1.0) E.U./dL Ur Leukocyte Esterase (NEGATIVE) Urine RBC /HPF Urine WBC /HPF Ur Epithelial Cells /LPF Urine Bacteria (NONE TO FEW) /HPF Urine Opiates Screen Negative (NEGATIVE) Ur Buprenorphine Scrn Negative (NEGATIVE) Ur Oxycodone Screen Negative (NEGATIVE) Ur EDDP (Meth Metab) Negative (NEGATIVE) Ur Barbiturates Screen Negative (NEGATIVE) Ur Tricyclics Screen Negative (NEGATIVE) Ur Amphetamine Screen Negative (NEGATIVE) U Methamphetamines Scrn Negative (NEGATIVE) Urine MDMA Screen Negative (NEGATIVE) U Benzodiazepines Scrn Negative (NEGATIVE) U Cocaine Metab Screen Negative (NEGATIVE) U Marijuana (THC) Screen Positive H (NEGATIVE) COVID-19 specimen was collected with results pending Urine specimen sent for culture and sensitivity Microbiology 08/06/20 00:50 Influenza Type A Antigen Screen - Final Nasal, Unspecified NEGATIVE INFLUENZA A VIRUS AG REFERENCE RANGE: NEGATIVE Influenza Type B Antigen Screen - Final NEGATIVE INFLUENZA B VIRUS AG REFERENCE RANGE: NEGATIVE 08/06/20 00:50 Group A Streptococcus Rapid Screen - Final Throat NEGATIVE STREP A SCREEN REFERENCE RANGE: NEGATIVE Meds: Medications Generic Name Dose Route Start Last Admin Trade Name Freq PRN Reason Stop Dose Admin Sodium Chloride 10 ml 08/06/20 00:22 08/06/20 00:39 Saline Flush FLUSH 10 ml ASDIRECTED PRN Administration Keep Vein Open Discontinued Medications Generic Name Dose Route Start Last Admin Trade Name Freq PRN Reason Stop Dose Admin Famotidine 40 mg 08/06/20 00:22 08/06/20 00:40 Pepcid IVPUSH 08/06/20 00:23 40 mg ONETIME ONE Administration Lactated Ringer's 1,000 mls @ 999 mls/hr 08/06/20 00:22 08/06/20 00:43 Ringers, Lactated IV 08/06/20 01:22 999 mls/hr .BOLUS ONE Administration Ondansetron HCl 4 mg 08/06/20 00:22 08/06/20 00:41 Zofran IVPUSH 08/06/20 00:23 4 mg ONETIME ONE Administration Pantoprazole Sodium 40 mg 08/06/20 00:22 08/06/20 00:38 Protonix Iv IVPUSH 08/06/20 00:23 40 mg ONETIME ONE Administration - Radiology Interpretation Free Text/Narrative:: Acute abdominal x-rays shows mild pulmonary obstructive disease with no cardiomegaly, CHF, pulmonary infiltrates, pneumothorax, etc. Mild to moderate diffuse stool with nonspecific bowel gaseous pattern with no intra-abdominal calcifications, fluid levels, ileus, obstruction, or free air. Mild scoliosis and pelvic phleboliths noted. Departure - Departure Time of Disposition: 02:47 Disposition: Home, Self-Care 01 Condition: Good Clinical Impression: Tobacco abuse counseling, Peptic reflux disease, Illicit drug use, continuous, Mixed anxiety and depressive disorder Asthma Qualifiers: Asthma severity: mild Asthma persistence: intermittent Asthma complication type: uncomplicated Qualified Code(s): J45.20 - Mild intermittent asthma, uncom plicated ADHD Qualifiers: Attention deficit-hyperactivity disorder type: predominantly hyperactive Qualified Code(s): F90.1 - Attention-deficit hyperactivity disorder, predominantly hyperactive type Abdominal pain Qualifiers: Abdominal location: generalized Qualified Code(s): R10.84 - Generalized abdominal pain - Discharge Information *PRESCRIPTION DRUG MONITORING PROGRAM REVIEWED*: Not Applicable *COPY OF PRESCRIPTION DRUG MONITORING REPORT IN PATIENT ALEX: Not Applicable Instructions: Steps to Quit Smoking, [id number], Health Risks of Smoking, O ndansetron injection, Pantoprazole injection, Abdominal Pain, Adult, [id number], Famotidine injection Referrals: PCP,None [Primary Care Provider] - Forms: ED Department Discharge Additional Instructions: 1. Follow up with your regular provider in 10-14 days as needed, if symptoms persist. Bring these discharge instructions with you to that visit.. 2. [place] diet including encouragement of oral fluids such as sports drinks, etc. for 24-48 hours as directed. Advance to regular diet as tolerated thereafter. 3. Work excuse- See Form 4. Stop all tobacco and marijuana use EMMANUEL as directed/per provided information and consider contacting Quit LIne, etc.. 5. Immediately after this visit verify that your cellular telephone's voicemail has been activated and is empty. Also verify that your home telephone's answering machine is operating properly and has space to receive messages. Note that it is sometimes necessary for us to be able to contact you at a later date to discuss your medical care. 6. Please remember that we are ALWAYS here for you and want to answer any questions you may have. Feel free to call the hospital any time and we call you back EMMANUEL. 7. Maintain recommended quarantine until you have been notified of today's COVID-19 test results as discussed with return to previous social distancing, use of masks, etc., thereafter as per current recommended CDC guidelines Sepsis Event Note (ED) - Evaluation Sepsis Screening Result: No Definite Risk - Focused Exam Vital Signs: Vital Signs Temp Pulse Resp BP Pulse Ox 08/06/20 00:02 37.0 C 63 14 129/79 100 - Problem List & Annotations (1) Abdominal pain SNOMED Code(s): 44550907 Code(s): R10.9 - UNSPECIFIED ABDOMINAL PAIN Status: Acute Priority: High Current Visit: Yes Onset Date: 08/06/20 Annotation/Comment:: Probable viral GE. Symptomatic relief as per discharge instructions. Symptoms resolved at time of discharge. [place] work excuse was provided. Secondary to his symptoms COVID-19 specimen was collected with isolation, etc. precautions extensively discussed. Qualifiers: Abdominal location: generalized Qualified Code(s): R10.84 - Generalized abdominal pain (2) Frequent headaches SNOMED Code(s): 444851699 Code(s): R51 - HEADACHE Status: Chronic Priority: Medium Current Visit: Yes Annotation/Comment:: Frequent mixed migraine and tension headaches with mostly tension component at this time. Symptomatic relief as per discharge instructions. Observe for now. Note anxiety component. (3) ADHD SNOMED Code(s): 150023044 Code(s): F90.9 - ATTENTION-DEFICIT HYPERACTIVITY DISORDER, UNSPECIFIED TYPE Status: Chronic Priority: Medium Current Visit: Yes Annotation/Comment:: Not currently under therapy with patient refusing medications in the past. Patient is using marijuana for his symptoms at this time for this disorder and his panic attacks. In addition note moderate alcohol use. Continue to observe closely by his regular providers. Qualifiers: Attention deficit-hyperactivity disorder type: predominantly hyperactive Qualified Code(s): F90.1 - Attention-deficit hyperactivity disorder, predominan tly hyperactive type (4) Asthma SNOMED Code(s): 439551183 Code(s): J45.909 - UNSPECIFIED ASTHMA, UNCOMPLICATED Status: Chronic Priority: Medium Current Visit: Yes Annotation/Comment:: Not currently requiring medical therapy with previous history of mostly childhood asthma. No recent fever or bronchitic type symptoms. Qualifiers: Asthma severity: mild Asthma persistence: intermittent Asthma complication type: uncomplicated Qualified Code(s): J45.20 - Mild intermittent asthma, uncomplicated (5) Illicit drug use, continuous SNOMED Code(s): 377848714 Code(s): F19.90 - OTHER PSYCHOACTIVE SUBSTANCE USE, UNSPECIFIED, UNCOMPLICATED Status: Chronic Priority: Medium Current Visit: Yes Annotation/Comment:: Note positive drug screen as above. Discontinuation of marijuana use strongly encouraged. (6) Peptic reflux disease SNOMED Code(s): 066418321 Code(s): K21.9 - GASTRO-ESOPHAGEAL REFLUX DISEASE WITHOUT ESOPHAGITIS Status: Chronic Priority: Medium Current Visit: Yes Annotation/Comment:: Stable by history with no previous or recent medical therapy. High-dose IV Pepcid and IV Protonix given in the emergency room. (7) Tobacco abuse counseling SNOMED Code(s): 424118243, 022090294, [id number] Code(s): Z71.6 - TOBACCO ABUSE COUNSELING Status: Chronic Priority: Medium Current Visit: Yes Annotation/Comment:: Tobacco cessation once again strongly encouraged with information provided at time of discharge. (8) Mixed anxiety and depressive disorder SNOMED Code(s): 304493765 Code(s): F41.8 - OTHER SPECIFIED ANXIETY DISORDERS Status: Chronic Priority: Medium Current Visit: Yes Annotation/Comment:: Moderate control based on today's exam. Continue to observe closely by regular provider. - Problem List Review Problem List Initiated/Reviewed/Updated: Yes - My Orders Last 24 Hours: My Active Orders 08/06/20 00:22 Sodium Chloride 0.9% [Saline Flush] 10 ml FLUSH ASDIRECTED PRN Resuscitation Status Stat 08/06/20 00:23 Abdomen Series w Chest 1V [CR] Stat CULTURE URINE [RM] Stat Obtain Past Medical Record [OM.PC] Urgent Peripheral IV Insertion Adult [OM.PC] Stat 08/06/20 00:24 Peripheral IV Care [RC] . DIRECTED 08/06/20 00:41 CORONAVIRUS COVID-19 PCR PHL Urgent 08/06/20 00:42 Isolation [COMM] Routine 08/06/20 00:50 CULTURE STREP A CONFIRMATION [RM] Stat STREP SCRN A RAPID W CULT CONF [RM] Stat 08/06/20 Breakfast Nothing Per Oral Diet [DIET] - Assessment/Plan Last 24 Hours: My Active Orders 08/06/20 00:22 Sodium Chloride 0.9% [Saline Flush] 10 ml FLUSH ASDIRECTED PRN Resuscitation Status Stat 08/06/20 00:23 Abdomen Series w Chest 1V [CR] Stat CULTURE URINE [RM] Stat Obtain Past Medical Record [OM.PC] Urgent Peripheral IV Insertion Adult [OM.PC] Stat 08/06/20 00:24 Peripheral IV Care [RC] . DIRECTED 08/06/20 00:41 CORONAVIRUS COVID-19 PCR PHL Urgent 08/06/20 00:42 Isolation [COMM] Routine 08/06/20 00:50 CULTURE STREP A CONFIRMATION [RM] Stat STREP SCRN A RAPID W CULT CONF [RM] Stat 08/06/20 Breakfast Nothing Per Oral Diet [DIET] Assessment:: As above Plan: As above. Extensive precautions were given to the patient, who is in agreement with the treatment plan. See Patient Instructions for further treatment and plan.
[2020-08-06] MEDS: Pantoprazole 40 MG Vial IVPUSH ONE (00:38)
[2020-08-06] MEDS: Sodium Chloride 0.9% 10 ML Syringe FLUSH PRN (00:39)
[2020-08-06] MEDS: Famotidine 20 MG/2 ML SDV IVPUSH ONE (00:40)
[2020-08-06] MEDS: Ondansetron 4 MG/2 ML SDV IVPUSH ONE (00:41)
[2020-08-06] MEDS: Lactated Ringers 1,000 ML IV ONE (00:43)
[2020-08-06 01:09] LABS: CHLORIDE,CL 100 mmol/L (98-107); SODIUM,NA 136 mmol/L (136-145)
[2020-08-06 01:12] LABS: PTT,PARTIAL THROMBOPLSTIN TIME 26.7 SEC (24.5-32.8)
[2020-08-06 02:04] LABS: BARBITURATE SCREEN,URINE NEGATIVE (NEGATIVE); BENZODIAZEPINES SCREEN,URINE NEGATIVE (NEGATIVE); EDDP,URINE SCREEN NEGATIVE (NEGATIVE); TCA SCREEN,URINE NEGATIVE (NEGATIVE); THC SCREEN,URINE 50 NG/ML POSITIVE (NEGATIVE)
== END 2020-08-06 03:00 | disposition home or self-care (01) ==
LOC: LL.ED 23:59
DX: R10.84 Generalized abdominal pain (principal); F90.1 Attention-deficit hyperactivity disorder, predominantly hyperactive type; J45.20 Mild intermittent asthma, uncomplicated; K21.9 Gastro-esophageal reflux disease without esophagitis; F41.8 Other specified anxiety disorders; Z88.6 Allergy status to analgesic agent; Z71.6 Tobacco abuse counseling; F17.210 Nicotine dependence, cigarettes, uncomplicated; Z79.899 Other long term (current) drug therapy; F19.90 Other psychoactive substance use, unspecified, uncomplicated
CPT/HCPCS: 36415; 74022; 80053; 80305-QW; 81001; 82150; 83605; 83690; 83735; 84550; 85025; 85610; 85730; 87081; 87086; 87430; 87804; 96361; 96374; 96375; 99284-25; C9113; J2405; J3490; J7120